=== PATIENT | female | born 1980 | race Two or more races ===

== ENCOUNTER 2023-01-22 08:44 | Emergency (ER) | payer OTHER ==
[~2023-01-22] VITALS: Ht 162.6 cm; Wt 86.9 kg
[2023-01-22 09:15] VITALS: BP 151/90; PULSE 108; RESP 18; TEMP 98.4; O2SAT 97
[2023-01-22] MEDS ORDERED: AUG875T PO (09:32)
[2023-01-22] MEDS ORDERED: PRED20TA2 PO (09:32)
[2023-01-22] MEDS ORDERED: ACYC1TAB3 PO (09:32)
== END 2023-01-22 09:42 | disposition home or self-care (01) ==
LOC: ER 08:44
DX: G51.0 Bell's palsy (principal); H65.01 Acute serous otitis media, right ear; E11.9 Type 2 diabetes mellitus without complications; Z79.899 Other long term (current) drug therapy
CPT/HCPCS: 70450